=== PATIENT | female | born 1965 | race Hispanic/Latino ===

== ENCOUNTER 2023-11-25 06:18 | Day surgery (SDC) | payer BC, SELFPAY ==
[2023-11-14 09:01] VITALS: BMI 29.0
[2023-11-14 10:22] LABS: Hematocrit 40.6 % (37.0-47.0); Hemoglobin 13.3 g/dL (12.0-16.0); Mean Corp Hgb Conc. 32.8 g/dL (33.0-37.0); Mean Corpuscular Hgb 29.4 pg (27.0-31.0); Mean Corpuscular Volume 89.8 fL (81.0-99.0); Mean Platelet Volume 12.7 fL (7.4-10.4); Platelet Count 196 10^3/uL (130-400); Red Blood Cell Count 4.52 10^6/uL (4.20-5.40); Red Cell Dist. Width 12.6 % (11.5-14.5); White Blood Cell Count 7.4 10^3/uL (4.8-10.8)
[2023-11-14 10:28] LABS: Blood Urea Nitrogen 18 mg/dl (7-17); Calcium 9.6 mg/dl (8.4-10.2); Carbon Dioxide 29 mmol/L (22-30); Chloride 104 mmol/L (98-107); Estimated Creatinine Clearance 62 ml/min; Glucose 82 mg/dl (70-99); Potassium 4.4 mmol/L (3.5-5.1); Sodium 142 mmol/L (135-145); eGFR > 60.00
[2023-11-25 10:18] VITALS: BMI 29.0
[2023-11-25 10:35] VITALS: BP 129/83
[2023-11-25] MEDS: NORMOSOL-R/PLASMALYTE-A 1000 IV (10:41)
[2023-11-25 13:30] VITALS: BP 112/58
[2023-11-25 13:45] VITALS: BP 124/47
[2023-11-25 14:00] VITALS: BP 121/67
== END 2023-11-25 14:29 | disposition home or self-care (01) ==
LOC: SDS 06:18
PROVIDERS: ATTENDING PHYSICIAN Podiatrist Foot & Ankle Surgery; FAMILY PHYSICIAN Family Medicine
DX: M20.12 Hallux valgus (acquired), left foot (principal); M21.172 Varus deformity, not elsewhere classified, left ankle; Q66.212 Congenital metatarsus primus varus, left foot; M25.375 Other instability, left foot
CPT/HCPCS: 28740; 28292; 36415; 73630; 76000; 80048; 85027; C1713